=== PATIENT | female | born 1955 | race Caucasian/White ===

== ENCOUNTER → 2016-09-01 | Outpatient (REF) | payer MEDICARE, MEDICAID ==
[~2016-09-01] MED LIST: ACCU CHECK; ACHYD1T PO; ALBU1.25; ALBU2.5V12 INH; ALBU8.5H2 IH; ALBU8.5H6 INH; ALBU8CC IH; AMIT25TA9 PO; AMT25T PO; ATOR20TA PO; BENA20TA2 PO; BENZ-22 PO; CEFD300C9 PO; COLE3.754 PO; COLE625T PO; D-ME118S7 PO; DIPH1TAB45; DIVA125T2 PO; DIVA125T3 PO; EPIN0.3P2 IM; ESCI20TA PO; ESCI20TA39 PO; FERR325T5 PO; FLUT16SP NS; FLUT1DIS3 INH; FNT25TD TD; FNT50TD; FNT50TD TOP; FURO-124 PO; FURO40TA4 PO; GABA800T2 PO; GBPN600T PO; GUAI120013 PO; HYDR-229 PO; INSU100V5 SC; KCL10CCR PO; LEVO50TA10; LEVO750T76 PO; LEVO75TA4 PO; LIRA0.6P2 SC; MNTL10T PO; MOME13HF INH; NIAC500T7 PO; OMEG1CAP58 PO; OMEP40CA36 PO; ORPH100T3 PO; OXYB10TA; OXYB10TA6 PO; OXYB5TAB PO; OXYB5TAB9 PO; PANT40TA3 PO; PROM5SYR PO; SAXA1TBM2 PO; TERB12CR3 TOP; TIZA2TAB3 PO; TIZA4CAP6 PO; TIZAN4T PO; TOPI-27 PO; TOPI50TA37 PO; TPR100T PO; TRIA60LO3 TOP
== END ==
LOC: LAB 09:41
PROVIDERS: ATTEND Family Medicine
DX: E11.9 Type 2 diabetes mellitus without complications (principal)
CPT/HCPCS: 80061

== ENCOUNTER → 2016-09-15 | Outpatient (REF) | payer MEDICARE, MEDICAID ==
[2016-09-15 12:51] LABS: BASOPHILS % (AUTO) 0 % (0-2); EOSINOPHILS # (AUTO) 0.3 10^3uL; EOSINOPHILS % (AUTO) 3 % (0-4); LYMPHOCYTES # (AUTO) 2.5 X10^3; MEAN CORPUSCULAR HEMOGLOBIN 29.7 PG (26.0-34.0); MEAN CORPUSCULAR HGB CONC 32.1 g/dL (31.0-37.0); MEAN CORPUSCULAR VOLUME 92 FL (80-100); MEAN PLATELET VOLUME 8.4 FL (6.0-9.5); MONOCYTES % (AUTO) 12 % (3-11); NEUTROPHILS # (AUTO) 4.6 X10^3; NEUTROPHILS % (AUTO) 55 % (51-67); PLATELET COUNT 246 10^3uL (150-450)
[2016-09-15 12:58] LABS: ALBUMIN 3.8 g/dL (3.4-5.0); ANION GAP 12.8 MEQ/L (3-15); TOTAL PROTEIN 7.2 g/dL (6.4-8.5)
== END ==
LOC: LAB 10:53
PROVIDERS: ATTEND Family Medicine
DX: E11.9 Type 2 diabetes mellitus without complications (principal); I10 Essential (primary) hypertension
CPT/HCPCS: 80053; 85025

== ENCOUNTER → 2016-11-24 | Outpatient (REF) | payer MEDICARE, MEDICAID ==
[2016-11-24 10:44] LABS: BASOPHILS % (AUTO) 0 % (0-2); EOSINOPHILS # (AUTO) 0.2 10^3uL; EOSINOPHILS % (AUTO) 2 % (0-4); LYMPHOCYTES # (AUTO) 2.4 X10^3; MEAN CORPUSCULAR HEMOGLOBIN 30.3 PG (26.0-34.0); MEAN CORPUSCULAR HGB CONC 32.4 g/dL (31.0-37.0); MEAN CORPUSCULAR VOLUME 94 FL (80-100); MEAN PLATELET VOLUME 8.3 FL (6.0-9.5); MONOCYTES # (AUTO) 0.9 X10^3; MONOCYTES % (AUTO) 10 % (3-11); NEUTROPHILS % (AUTO) 59 % (51-67); PLATELET COUNT 225 10^3uL (150-450); WHITE BLOOD COUNT 8.53 10^3uL (4.0-11.0)
[2016-11-24 10:57] LABS: ALBUMIN 3.6 g/dL (3.4-5.0); ANION GAP 13.6 MEQ/L (3-15); CALCULATED IONIZED CALCIUM 4.1 mg/dL (3.8-4.6); TOTAL PROTEIN 6.8 g/dL (6.4-8.5)
== END ==
LOC: LAB 10:24
PROVIDERS: ATTEND Family Medicine
DX: E11.21 Type 2 diabetes mellitus with diabetic nephropathy (principal)
CPT/HCPCS: 80053; 80061; 82043; 83036; 85025

== ENCOUNTER → 2016-12-11 | Outpatient (CLI) | payer MEDICARE, MEDICAID | LOC: EMS 02:04 | DX: Z53.20 Procedure and treatment not carried out because of patient's decision for unspecified reasons (principal) ==

== ENCOUNTER → 2017-01-05 | Outpatient (REF) | payer MEDICARE, MEDICAID ==
[2017-01-05 10:10] LABS: ANION GAP 12.1 MEQ/L (3-15)
== END ==
LOC: LAB 09:38
PROVIDERS: ATTEND Family Medicine
DX: I10 Essential (primary) hypertension (principal); E78.00 Pure hypercholesterolemia, unspecified; E11.9 Type 2 diabetes mellitus without complications; E87.6 Hypokalemia; D50.9 Iron deficiency anemia, unspecified
CPT/HCPCS: 80048; 80061; 82607; 82746; 83036; 83540; 83550; 85045

== ENCOUNTER → 2017-01-10 | Outpatient (REF) | payer MEDICARE, MEDICAID ==
[2017-01-10 11:40] LABS: MEAN CORPUSCULAR HEMOGLOBIN 30.4 PG (26.0-34.0); MEAN CORPUSCULAR HGB CONC 32.5 g/dL (31.0-37.0); MEAN PLATELET VOLUME 8.7 FL (6.0-9.5); WHITE BLOOD COUNT 9.79 10^3uL (4.0-11.0)
[2017-01-10 18:19] LABS: IRON 49 ug/dL (50-170); UNBOUND IRON CONTENT 240 ug/dl (126-382)
== END ==
LOC: LAB 10:15
PROVIDERS: ATTEND Family Medicine
DX: D50.9 Iron deficiency anemia, unspecified (principal)
CPT/HCPCS: 82746; 83540; 83550; 85027